=== PATIENT | male | born 1985 | race Caucasian/White ===

== ENCOUNTER 2024-04-02 17:47 | Emergency (ER) | payer BC, SELFPAY ==
[2024-04-02] VITALS (24 sets, daily range): BP systolic 126–167; BP diastolic 79–101; PULSE 54–76; TEMP 36.8; O2SAT 100; BMI 27.6
--- NOTE | 2024-04-02 18:03 | ED_ITS ---
HPI - Chest Pain General Chief Complaint: Chest Pain Stated Complaint: Chest Pain Time Seen by Provider: 04/02/24 17:50 Source: patient Mode of arrival: walk-in History of Present Illness HPI narrative: 39 year old male presents to the ED for left-sided chest pain. Onset was this morning. The pain is worse with inspiration, movement, and palpation. Denies fever, chills, injury, SOB, dizziness. denies back pain. Related Data Home Medications ?Medication ?Instructions ?Recorded ?Confirmed cholecalciferol (vitamin D3) 50 50 mcg PO DAILY 04/02/24 04/02/24 mcg (2,000 unit) capsule (Vitamin D3) escitalopram oxalate 20 mg tablet 20 mg PO DAILY 04/02/24 04/02/24 lamotrigine 100 mg tablet 100 mg PO DAILY 04/02/24 04/02/24 quetiapine 100 mg tablet 100 mg PO QPM 04/02/24 04/02/24 Allergies Allergy/AdvReac Type Severity Reaction Status Date / Time No Known Drug Allergies Allergy Verified 04/02/24 17:56 Review of Systems ROS Constitutional Denies: fever or chills Ears, nose, mouth, and throat Denies: neck pain Cardiovascular Reports: chest pain; Denies: palpitations, edema, swelling of feet/ankles or lightheadedness Respiratory Denies: shortness of breath or cough Gastrointestinal Denies: abdominal pain, nausea or vomiting Musculoskeletal Denies: back pain or neck pain Neurological Denies: headache, numbness in extremities, weakness in extremities, lack of coordination or dizziness Exam Constitutional Vital Signs, click to edit/add: Last Vital Signs Temp 98.3 F 04/02/24 17:53 Pulse 59 L 04/02/24 19:50 Resp 22 H 04/02/24 19:50 BP 131/85 04/02/24 19:30 Pulse Ox 100 04/02/24 18:00 Common normals: no apparent distress and oriented x3 General appearance: cooperative Orientation/consciousness: Yes awake Eye Common normals: conjunctivae normal and no scleral icterus Neck & C-Spine Common normals: supple Chest Chest: symmetrical chest wall rise and tenderness Respiratory Common normals: normal respiratory effort, no use of accessory muscles and clear to auscultation bilaterally Effort & inspection: able to speak in complete sentences and symmetric chest movement Cardio Common normals: regular rate and regular rhythm Neuro Common normals: oriented x3, CN's II-XII intact bilaterally and moves all extremities Sensorium/orientation: awake and alert Speech: speech normal Course Vital Signs Vital signs: Vital Signs Temperature 98.3 F 04/02/24 17:53 Pulse Rate 76 04/02/24 17:53 Respiratory Rate 18 04/02/24 17:53 Blood Pressure 167/100 H 04/02/24 17:53 Pulse Oximetry 100 04/02/24 17:53 Temperature 98.3 F 04/02/24 17:53 Pulse Rate 59 L 04/02/24 19:50 Respiratory Rate 22 H 04/02/24 19:50 Blood Pressure 131/85 04/02/24 19:30 Pulse Oximetry 100 04/02/24 18:00 MDM - Chest Pain MDM Narrative Medical decision making narrative: Chest x-ray showed no acute findings. Troponin was unremarkable x2. Initial potassium was 5.5; repeat was 3.7 after treatment. His blood sugar did drop with the potassium treatment; he was given food, juice with improvement. His pain was reproducible. He has a pcp follow up appointment next week. Follow up as scheduled. Differential Diagnosis Differential diagnosis: Likely atypical chest pain, st elevation myocardial infarction and chest pain Medical Records Data Attestation: I reviewed the patient's medical records. Lab Data Attestation: I reviewed the patient's lab results. Labs: Lab Results 04/02/24 04/02/24 04/02/24 Range/Units 18:08 20:40 20:50 WBC 8.1 (4.0-11.0) 10^3/uL RBC 5.27 (4.70-6.10) 10^6/uL Hgb 16.5 (14.0-18.0) g/dL Hct 47.2 (42.0-54.0) % MCV 89.6 (80.0-94.0) fL MCH 31.3 (25.9-34.0) pg MCHC 35.0 (29.9-35.2) g/dL RDW 12.9 (11.0-15.0) % Plt Count 269 (150-450) 10^3/uL MPV 11.3 (9.5-13.5) fL Neut % (Auto) 71.6 (43.0-75.0) % Lymph % (Auto) 20.8 (20.5-60.0) % [place] % (Auto) 5.9 (1.7-12.0) % Eos % (Auto) 1.0 (0.9-7.0) % Baso % (Auto) 0.5 (0.2-2.0) % Neut # (Auto) 5.8 (1.4-6.5) 10^3/uL Lymph # (Auto) 1.7 (1.2-3.8) 10^3/uL [place] # (Auto) 0.5 (0.3-0.8) 10^3/uL Eos # (Auto) 0.1 (0.0-0.7) 10^3/uL Baso # (Auto) 0.0 (0.0-0.1) 10^3/uL Abs Immat Gran (auto) 0.02 (0.00-0.03) 10^3/uL Imm/Tot Granulo (auto) 0.2 (0.0-0.5) % Sodium 138 (136-145) mmol/L Potassium 5.5 H 3.7 (3.5-5.1) mmol/L Chloride 101 (98-107) mmol/L Carbon Dioxide 32.5 H (21.0-32.0) mmol/L Anion Gap 10.0 BUN 12.0 (7.0-18.0) mg/dL Creatinine 1.03 (0.70-1.30) mg/dL Est GFR ( Amer) >60 (>=60) Est GFR (Non-Af Amer) >60 (>=60) BUN/Creatinine Ratio 11.7 Glucose 83 (74-106) mg/dL Calcium 9.2 (8.5-10.1) mg/dL Total Bilirubin 1.0 (0.2-1.0) mg/dL AST 44 H (15-37) U/L ALT 27 (16-63) U/L Alkaline Phosphatase 60 (46-116) U/L Troponin I High Sens <4.0 L <4.0 L (4.0-76.1) pg/mL Total Protein 7.9 (6.4-8.2) g/dL Albumin 4.4 (3.4-5.0) g/dL Globulin 3.5 g/dL Albumin/Globulin Ratio 1.3 POC Glucose 52 L (74-106) mg/dL 04/02/24 Range/Units 21:17 WBC (4.0-11.0) 10^3/uL RBC (4.70-6.10) 10^6/uL Hgb (14.0-18.0) g/dL Hct (42.0-54.0) % MCV (80.0-94.0) fL MCH (25.9-34.0) pg MCHC (29.9-35.2) g/dL RDW (11.0-15.0) % Plt Count (150-450) 10^3/uL MPV (9.5-13.5) fL Neut % (Auto) (43.0-75.0) % Lymph % (Auto) (20.5-60.0) % [place] % (Auto) (1.7-12.0) % Eos % (Auto) (0.9-7.0) % Baso % (Auto) (0.2-2.0) % Neut # (Auto) (1.4-6.5) 10^3/uL Lymph # (Auto) (1.2-3.8) 10^3/uL [place] # (Auto) (0.3-0.8) 10^3/uL Eos # (Auto) (0.0-0.7) 10^3/uL Baso # (Auto) (0.0-0.1) 10^3/uL Abs Immat Gran (auto) (0.00-0.03) 10^3/uL Imm/Tot Granulo (auto) (0.0-0.5) % Sodium (136-145) mmol/L Potassium (3.5-5.1) mmol/L Chloride (98-107) mmol/L Carbon Dioxide (21.0-32.0) mmol/L Anion Gap BUN (7.0-18.0) mg/dL Creatinine (0.70-1.30) mg/dL Est GFR ( Amer) (>=60) Est GFR (Non-Af Amer) (>=60) BUN/Creatinine Ratio Glucose (74-106) mg/dL Calcium (8.5-10.1) mg/dL Total Bilirubin (0.2-1.0) mg/dL AST (15-37) U/L ALT (16-63) U/L Alkaline Phosphatase (46-116) U/L Troponin I High Sens (4.0-76.1) pg/mL Total Protein (6.4-8.2) g/dL Albumin (3.4-5.0) g/dL Globulin g/dL Albumin/Globulin Ratio POC Glucose 196 H (74-106) mg/dL Imaging Data Chest x-ray: Attestation: I have reviewed the pertinent imaging results. Radiologist's impression: ITS Impressions Chest X-Ray 04/02/24 18:20 IMPRESSION: No acute infiltrate or evidence of cardiac decompensation. Electronically authenticated by: KHADAR MARCOS Date: 04/02/2024 18:53 ECG Data Attestation: ?I have reviewed the pertinent ECG results. (EKG was reviewed by the attending physician. It showed sinus rhythm at a rate of 68. No acute ST segment changes. ) Interpretation: Measurements Intervals [place] Rate: 68 P: 65 ID: [id number] QRS: 69 QRSD: 80 T: 56 QT: 374 QTc: 392 Interpretive Statements 1100 Sinus rhythm 9110 normal ECG No previous ECG available for comparison Heart Score History: Slightly/Non-Suspicious ECG: Normal Age: <45 years Risk Factors: 1 or 2 Risk Factors Troponin: <Normal Limit Total Heart Score Recommendations & Risks:: 1 Discharge Plan Discharge Chief Complaint: Chest Pain Clinical Impression: Atypical chest pain, Acute hyperkalemia Patient Disposition: Home, Self-Care Time of Disposition Decision: 21:16 Condition: Good Mode of Transportation: Private Vehicle Prescriptions / Home Meds: No Action cholecalciferol (vitamin D3) [Vitamin D3] 50 mcg (2,000 unit) capsule 50 mcg PO DAILY escitalopram oxalate 20 mg tablet 20 mg PO DAILY lamotrigine 100 mg tablet 100 mg PO DAILY quetiapine 100 mg tablet 100 mg PO QPM Print Language: Persian Instructions: Chest Pain (ED), Hyperkalemia (ED), Chest Wall Pain (ED) Additional Instructions: Return to the ER for new or worsening symptoms. Referrals: Darcie Garcia NP [Primary Care Provider] - 1 week
--- NOTE | 2024-04-02 18:03 | ECG_ITS ---
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
[2024-04-02] MEDS: ASPIRIN 81 MG TAB.CHEW 324 MG PO (18:14)
--- NOTE | 2024-04-02 18:20 | XR_ITS ---
The [address] [address] Patient Name: OBDULIA SALAZAR MRN: [id number] date: 1985 Sex: M Assigned Patient Location: ED.MAIN Current Patient Location: ER Accession/Order Number: [id number] Exam Date: 04/02/2024 18:15 Report Date: 04/02/2024 18:53 At the request of: SHARRON CARDONA Procedure: XR chest 1V EXAM: XR chest 1V at 1809 hours HISTORY: CP COMPARISON: None. TECHNIQUE: AP upright portable chest x-ray FINDINGS: The heart is not enlarged and the vasculature is not distended. No acute infiltrate, effusion or pneumothorax is identified. The osseous structures are grossly intact. XR/XR chest 1V IMPRESSION: No acute infiltrate or evidence of cardiac decompensation. Electronically authenticated by: KHADAR MARCOS Date: 04/02/2024 18:53
[2024-04-02 18:31] LABS: Basophils Percent Auto 0.5 % (0.2-2.0); Eosinophils Absolute Auto 0.1 10^3/uL (0.0-0.7); Hematocrit 47.2 % (42.0-54.0); Hemoglobin 16.5 g/dL (14.0-18.0); Immature Granulocytes Abs Auto 0.02 10^3/uL (0.00-0.03); Immature Granulocytes Pct Auto 0.2 % (0.0-0.5); Lymphocytes Absolute Auto 1.7 10^3/uL (1.2-3.8); Lymphocytes Percent Auto 20.8 % (20.5-60.0); Mean Corpuscular Hemoglobin 31.3 pg (25.9-34.0); Mean Corpuscular Volume 89.6 fL (80.0-94.0); Mean Platelet Volume 11.3 fL (9.5-13.5); Monocytes Absolute Auto 0.5 10^3/uL (0.3-0.8); Monocytes Percent Auto 5.9 % (1.7-12.0); Neutrophils Absolute Auto 5.8 10^3/uL (1.4-6.5); Neutrophils Percent Auto 71.6 % (43.0-75.0); Platelet Count 269 10^3/uL (150-450); Red Blood Count 5.27 10^6/uL (4.70-6.10); Red Cell Distribution Width 12.9 % (11.0-15.0); White Blood Count 8.1 10^3/uL (4.0-11.0)
[2024-04-02 18:56] LABS: Alanine Aminotransferase 27 U/L (16-63); Albumin Globulin Ratio 1.3; Albumin Level 4.4 g/dL (3.4-5.0); Alkaline Phosphatase 60 U/L (46-116); Aspartate Amino Transferase 44 U/L (15-37); BUN Creatinine Ratio 11.7; Calcium 9.2 mg/dL (8.5-10.1); Carbon Dioxide 32.5 mmol/L (21.0-32.0); Chloride 101 mmol/L (98-107); Estimated GFR (African America >60 (>=60); Estimated GFR (Non-African Ame >60 (>=60); Globulin 3.5 g/dL; Glucose 83 mg/dL (74-106); Potassium 5.5 mmol/L (3.5-5.1); Sodium 138 mmol/L (136-145); Total Protein 7.9 g/dL (6.4-8.2); Troponin I High Sensitivity <4.0 pg/mL (4.0-76.1)
[2024-04-02] MEDS: DEXTROSE 50 %-WATER 25 GM/50 ML SYRINGE IV (19:36)
[2024-04-02] MEDS: INSULIN REGULAR, HUMAN (100 UNIT/ML) 10 ML MDV 10 UNIT IV (19:36)
[2024-04-02 20:43] LABS: Glucometer 52 mg/dL (74-106)
--- NOTE | 2024-04-02 20:52 | PC.NURSE ---
Pt alerted this nurse that pt was sweaty and warm and worried his BS may be low as he has not eaten today. Pt given IV dextrose as well as insulin to correct elevated potassium per [facility]LLER order Pt BS was noted to be 52 upon POC testing. Pt provided juice along with snacks.
[2024-04-02 21:11] LABS: Potassium 3.7 mmol/L (3.5-5.1); Troponin I High Sensitivity <4.0 pg/mL (4.0-76.1)
[2024-04-02 21:19] LABS: Glucometer 196 mg/dL (74-106)
== END 2024-04-02 21:27 | disposition home or self-care (01) ==
PROVIDERS: Nurse Practitioner Family; Emergency Provider Emergency Medicine; PCP Nurse Practitioner Family
DX: R07.89 Other chest pain (principal); E87.5 Hyperkalemia
CPT/HCPCS: 36415; 71045; 80053; 84132; 84484; 85025; 93005; 99285; J1817